=== PATIENT | male | born 1965 | race African-American/Black ===

== ENCOUNTER 2021-11-03 15:36 | Emergency (ER) | payer MEDICARE, OTHER ==
[~2021-11-03] VITALS: Ht 175.3 cm; Wt 97.7 kg
[~2021-11-03 15:36] MED LIST: AMLO10TA55 PO; ATEN-188 PO; CHLO25TA3 PO; GEMF600T89 PO; HYDR-4061 PO; IBUP100O27 PO
[2021-11-03 15:43] VITALS: BP 120/79
[2021-11-03] MEDS ORDERED: LISI2.5T91 PO (15:45)
[2021-11-03] MEDS ORDERED: METO25 PO (15:45)
[2021-11-03] MEDS ORDERED: HYDR-4723 PO (17:59)
[2021-11-03] MEDS ORDERED: METO50 PO (18:11)
[2021-11-03] MEDS ORDERED: AMLO-257 PO (18:11)
[2021-11-03] MEDS ORDERED: LISI10TA24 PO (18:11)
[2021-11-03] MEDS ORDERED: ATOR-2 PO (18:11)
== END 2021-11-03 18:30 | disposition home or self-care (01) ==
LOC: EMS 15:38
DX: S20.211A Contusion of right front wall of thorax, initial encounter (principal); E78.00 Pure hypercholesterolemia, unspecified; F10.20 Alcohol dependence, uncomplicated; F12.90 Cannabis use, unspecified, uncomplicated; I10 Essential (primary) hypertension; V19.9XXA Pedal cyclist (driver) (passenger) injured in unspecified traffic accident, initial encounter; Y93.89 Activity, other specified; Y92.89 Other specified places as the place of occurrence of the external cause; Y99.8 Other external cause status
CPT/HCPCS: 71101; 99283